=== PATIENT | male | born 1960 | race Caucasian/White ===

== ENCOUNTER 2023-07-07 10:12 | Outpatient (CLI) | payer OTHER, SELFPAY | END 2023-07-07 10:13 | disposition home or self-care (01) | PROVIDERS: PCP Family Medicine; Visit Provider Family Medicine | DX: Z00.00 Encounter for general adult medical examination without abnormal findings (principal); R53.83 Other fatigue; I10 Essential (primary) hypertension; Z12.5 Encounter for screening for malignant neoplasm of prostate; Z13.6 Encounter for screening for cardiovascular disorders | CPT/HCPCS: 80048; 80061; 84403; 84443; G0103 ==

== ENCOUNTER 2023-07-18 15:22 | Outpatient (CLI) | payer OTHER, SELFPAY ==
--- NOTE | 2023-07-18 16:00 | CRLHL7_ITS ---
For Patients: As a result of the Century Cures Act, medical imaging exams and procedure reports are released immediately into your electronic medical record. You may view this report before your referring provider. If you have questions, please contact your health care provider. INDICATION: Right lower quadrant pain, evaluate for hernia TECHNIQUE: CT abdomen and pelvis acquired in Valsalva with 100 cc Isovue 370 IV contrast. COMPARISON: None. FINDINGS: Lower chest: Unremarkable. Liver: Superior most portion of the dome was not included in the images. Visualized liver is unremarkable. Normal in size and attenuation. No masses. Gallbladder and bile ducts: Unremarkable. No stones or inflammation. No biliary dilatation. Pancreas: Unremarkable. No mass or inflammation. Spleen: Unremarkable. Normal in size. No masses. Adrenal glands: Unremarkable. No nodules. Kidneys: Unremarkable. No masses, stones, or hydronephrosis. GI tract: Colonic diverticulosis. No diverticulitis. Normal in caliber. No sign of mass or inflammation. Normal appendix. Vasculature: Unremarkable. Mesenteric arteries are patent. Lymph nodes: No lymphadenopathy. Omentum/Peritoneum/Abdominal Wall: No evidence for inguinal hernia. Pelvis: Unremarkable. Bones: Unremarkable for age. IMPRESSION: No cause for right lower quadrant pain identified. No inguinal hernia appreciated. Please note that all CT scans at this facility use dose modulation, iterative reconstruction, and/or weight-based dosing when appropriate to reduce radiation dose to as low as reasonably achievable. Dictated by Macho Plummer MD @ 07/19/2023 8:13:19 AM (Electronically Signed)
== END 2023-07-18 15:23 | disposition home or self-care (01) ==
LOC: CT 15:23
PROVIDERS: PCP Family Medicine; Visit Provider Surgery
DX: R10.31 Right lower quadrant pain (principal)
CPT/HCPCS: 74177; Q9967

== ENCOUNTER 2023-08-15 07:58 | Outpatient (CLI) | payer OTHER, SELFPAY ==
--- OUTSIDE RECORDS SUMMARY | 2023-08-15 08:00 | XMS_ITS | Clinical Summary ---
Author Name Unknown Organization [place] Address [address] [place] [address] Care Team Providers Care President & Founder Name Role Phone Clinic, [facility] Wang Primary Care Provider [phone] Allergies No known active allergies Medications Medication Sig Dispensed Refills Start Date End Date Status IBUPROFEN PO Take 200 mg by mouth 4 times daily 0 Active acetaminophen-codeine (TYLENOL #3) 300-30 MG per tablet Take 1-2 tablets by mouth every 4 hours as needed for moderate pain 0 Active multivitamin, therapeutic with minerals (MULTI-VITAMIN) TABS tablet Take 1 tablet by mouth daily 0 Active oxyCODONE IR (ROXICODONE) 5 MG tabletIndications:S/P discectomy 1-2 tablets every 3 hours as needed 20 tablet 0 08/14/2017 Active Immunizations Name Administration Dates Next Due TDAP (Adacel,Boostrix) 07/16/2007 Twinrix A/B 07/27/2011,08/27/2007,07/16/2007 Typhoid IM 07/27/2011 Social History Tobacco Use Types Packs/Day Years Used Date Smoking Tobacco: Never Smokeless Tobacco: Never Alcohol Use Standard Drinks/Week Comments Yes 0 (1 standard drink = 0.6 oz pur e alcohol) Sex and Gender Information Value Date Recorded Sex Assigned at Not on file Gender Identity Not on file Sexual Orientation Not on file Last Filed Vital Signs Vital Sign Reading Time Taken Comments Blood Pressure 134/92 08/14/2017 3:42 PM ATTENDING PATHOLOGIST Pulse 72 07/26/2017 9:45 AM ATTENDING PATHOLOGIST Temperature 36.4 ??C (97.6 ??F) 08/14/2017 3:00 PM CS T Respiratory Rate 16 08/14/2017 3:42 PM ATTENDING PATHOLOGIST Oxygen Saturation 99% 08/14/2017 3:42 PM ATTENDING PATHOLOGIST Inhaled Oxygen Concentration - - Weight 94.3 kg (207 lb 14.4 oz) 018 10:19 AM ATTENDING PATHOLOGIST Height 179.1 cm (5' 10.5) 08/14/2017 1 0:19 AM ATTENDING PATHOLOGIST Body Mass Index 29.41 08/14/2017 10:19 AM ATTENDING PATHOLOGIST Plan of Treatment Not on file Care Teams President & Founder Relationship Specialty Start Date End Date [facility], Carmen Wnag [address] [place], [place] [address] [address] PCP - General 06/16/13
--- OUTSIDE RECORDS SUMMARY | 2023-08-15 08:00 | XMS_ITS | Clinical Summary ---
Author Name Unknown Organization [facility] Address [address] [place] [address] Care Team Providers Care Healthcare Network Pricing Consultant Name Role Phone No Primary/Referring, Phy Primary Care Provider Unavailable Source Comments You are receiving this document as you are listed as the primary care provider,follow-up provider, or the patient has been referred to you for consultation.This is in compliance with the Medicare andSelect [facility] EHR Incentive Program,which states Providers who transition their patient to another setting of careor provider of care or refers their patient to another provider of care shouldprovide summary care record for each transition of care or referral. [facility] Allergies No known active allergies Medications Medication Sig Dispensed Refills Start Date End Date Status acetaminophen-codeine (TYLENOL NO. . 3) 300-30 MG tablet TK 1 T PO Q 4 TO 6 H PRN P 0 08/03/2017 Active Active Problems Problem Noted Date Diagnosed Date Pes cavus 04/11/2017 Plantar fasciitis 03/23/2017 Palpable abdominal mass 03/23/2017 Immunizations Name Administration Dates Next Due HepA-HepB ([place], 18+ yrs) 08/27/2007,07/16/19 08 TDAP (ADACEL) 07/16/2007 Td 11/29/1997 Typhoid (Vivotif, Oral) 07/16/2007 Social History Tobacco Use Types Packs/Day Years Used Date Smoking Tobacco: Never Smokeless Tobacco: Never Alcohol Use Standard Drinks/Week Comments Yes 0 (1 standard drink = 0.6 oz pur e alcohol) occasional beer Sex and Gender Information Value Date Recorded Sex Assigned at Not on file Gender Identity Not on file Sexual Orientation Not on file Last Filed Vital Signs Vital Sign Reading Time Taken Comments Blood Pressure 140/79 08/08/2017 3:19 PM METAL CEILING HANGER Pulse 73 08/08/2017 3:19 PM METAL CEILING HANGER Temperature 36.2 ??C (97.1 ??F) 08/08/2017 3:19 PM CS T Respiratory Rate - - Oxygen Saturation - - Inhaled Oxygen Concentration - - Weight 96.3 kg (212 lb 3.2 oz) 08/08/2017 3:19 P M METAL CEILING HANGER Height 179.1 cm (5' 10.5) 08/08/2017 3:19 PM CS T Body Mass Index 30.02 08/08/2017 3:19 PM METAL CEILING HANGER Plan of Treatment Health Maintenance Due Date Last Done Comments Colon Cancer Screening Plan Due 1960 Hep C Screening (Preventive Services) 1960 PSA Screening Discussion 1960 COVID-19 Vaccine (#1) 04/04/1963 HIV Screening (Preventive Services) 1978 Adult Preventive Visit 1980 Cholesterol 1997 HepB (3) 01/25/2008 08/27/2007, 07/16/2007 Zoster/Shingles (1 of 2) 2012 DTaP/Tdap/Td (2 - Tdap) 07/16/2017 07/16/19 08, 11/29/1997 Influenza (#1) 2023 HepA Completed 07/27/2011, 08/27/2007, 07/16/2007 Hib Aged Out No longer eligi ble based on patient's age to complete this topic IPV (Polio) Aged Out No longer eligi ble based on patient's age to complete this topic MCV4 Aged Out No longer eligi ble based on patient's age to complete this topic Pneumococcal Aged Out No longer eligi ble based on patient's age to complete this topic Care Teams Healthcare Network Pricing Consultant Relationship Specialty Start Date End Date No Primary/Referring, Carlie PCP - General 03/23/17
--- OUTSIDE RECORDS SUMMARY | 2023-08-15 08:00 | XMS_ITS | Referral Summary ---
Author Name Unknown Organization [place] Address [address] [place] [address] Care Team Providers Care Display Maker Name Role Phone Clinic, [facility] Primary Care Provider [phone] [phone] Allergies No known active allergies Medications Medication [...] Comments Blood Pressure 134/92 08/14/2017 3:42 PM SEASONAL GREENERY BUNDLER Pulse 72 07/26/2017 9:45 AM SEASONAL GREENERY BUNDLER Temperature 36.4 ??C (97.6 ??F) 08/14/2017 3:00 PM CS T Respiratory Rate 16 08/14/2017 3:42 PM SEASONAL GREENERY BUNDLER Oxygen Saturation 99% 08/14/2017 3:42 PM SEASONAL GREENERY BUNDLER Inhaled Oxygen Concentration - - Weight 94.3 kg (207 lb 14.4 oz) 018 10:19 AM SEASONAL GREENERY BUNDLER Height 179.1 cm (5' 10.5) 08/14/2017 1 0:19 AM SEASONAL GREENERY BUNDLER Body Mass Index 29.41 08/14/2017 10:19 AM SEASONAL GREENERY BUNDLER Plan of Treatment Not on file Care Teams Display Maker Relationship Specialty Start Date End Date [facility], Carmen Wang [address] [place], [place] [address] [address] PCP - General 06/16/13
--- NOTE | 2023-08-15 08:15 | MR_ITS ---
[address] [address] Phone:?[phone] Fax:?[phone] Referring Physician Information: Armando Lee M.D. [address] [id number] Phone:?[phone] Fax:?[phone] Patient:?Kenji Porter D.O.B:?1960 Sex:?Male Phone:?[phone] [facility] MRN:?[id number] Exam Date:?08/15/2023 EXAM: MRI of the RIGHT HIP, without contrast CLINICAL: Male, 62 years old, with chronic right lower quadrant/groin pain. INDICATION: Evaluate for derangement etiology. PRIOR SURGERY: None reported. PLAIN FILMS: None available. COMPARISONS: No prior MRIs available. TECHNICAL: Using a 1.5T MR scanner: 5.0 mm?coronals: PD, T2 3.0 mm?sagittals: PD, T2 3.0 mm oblique?axials: PD 3.0 mm?axials: PDFS 5.0 mm?coronals: T1, STIR of pelvis including hips SEDATION: None. CONTRAST: None. IMPRESSION: 1. Broad-based marked degeneration, right 30/tear and attenuation of most of the right acetabular labrum. 2. Prominent and broad-based superior through anteroinferior femoral cam morphology with potential to predispose to any clinical presentation of femoroacetabular impingement (MAYRA). 3. Relatively low volume hip into the range of borderline hip dysplasia, without acetabular retroversion. 4. Apparent chronic-appearing ligamentum teres deficiency. 5. No bone stress injuries. 6. No myotendinous abnormalities. 7. Included L4-5 and L5-S1 levels of the lower lumbar spine show elements of spondylosis at L5-S1 greater than L4-5. 8. Numerous sigmoid: diverticula without convincing MR evidence of adjacent soft tissue reactive changes.. FINDINGS: Hip joint: Effusion: Very small right hip joint effusion, smaller than that on the left. Ganglion/paralabral cyst: None. Articular cartilage: A small amount of chondromalacia is not excluded, perhaps suspected, but without convincing more prominent full-thickness chondromalacia/defect or subjacent reactive marrow edema. Loose bodies: None. Labrum: Broad-based deformity of the anterosuperior into anterior and superior labrum reflects prominent degeneration with broad-based tear/irregularity attenuation which likely also extends into the posterosuperior labrum as well (oblique axial series 6, images 21-11; sagittal series 8, images 26-19; coronal PD series 4, images 11-20). Proximal femur: No femoral occult fracture, bone stress injury, marrow edema or osteonecrosis. Slight circumferential collar marginal osteophyte formation of the right femoral head could support questioned slight right hip joint degenerative change. Decreased sulcus and decreased femoral head-neck offset of the anterosuperior into anteroinferior femoral head-neck junction reflects prominent and broad- based femoral cam morphology with potential to predispose cam mechanism of any clinically evident femoroacetabular impingement (MAYRA) (oblique axial series 6, images 12-18). Based on oblique axial series 6, image 13 at approximately 2 o'clock anterosuperiorly, the maximum femoral alpha angle measures markedly elevated at approximately 85?. Acetabulum: There appears deformity of the lateral acetabular rim appearing associated with chronic hyperostosis. Version: No acetabular retroversion. Coverage: Right lateral center edge (CE) angle measures relatively low into the range of borderline hip dysplasia (<20?) at approximately 23? (normal 25?-39?), midline coronal series 4, image 14. Ligamentum teres: Not well identified, suspected be markedly attenuated, perhaps representing residua of old injury and atrophy. Pelvis osseous structures: Sacrum: No stress/insufficiency fractures or marrow edema/pathology. Sacroiliac joints: No demonstrable sacroiliitis. Pubic rami: No stress/insufficiency fractures or marrow edema/pathology. Symphysis pubis: Mild chronic pubic symphysis degeneration without subjacent reactive marrow edema. AIIS: Superoinferior extent: 3.5 mm superior to the level of the acetabular roof. Anterior extent: 10 mm anterior to the anterior mid-acetabular rim. Myotendinous structures: Gluteus abductors: No convincing insertional tendinopathy or tear of gluteus minimus or medius. Adductors: No demonstrable tendinopathy or strain/tear. Rectus abdominis: No demonstrable tear/strain. Pre-pubic aponeurotic complex: Intact, without evidence of common rectus abdominis-adductor longus aponeurosis or pubic plate lesion. Hamstrings: Intact semimembranosus, semitendinosus and biceps femoris tendons, without convincing significant tendinopathy or tear. Flexors: Intact iliopsoas and rectus femoris, without strain/tear. External rotators: Intact, without demonstrable ischiofemoral impingement. Gluteal aponeurotic fascia and IT band: Unremarkable. Bursae: No demonstrable trochanteric, iliopsoas, or iliopectineal bursitis. Intrapelvic contents: Free fluid: No free fluid seen within the pelvis. Pelvic viscera: No discrete intrapelvic mass is identified. Lymph nodes: No pathologically enlarged lymphadenopathy. Neurovascular structures: No discrete cyst, mass or other compression upon the portions visualized of sciatic or femoral nerves. Lower lumbar spine: The visualized portion of the lower lumbar spine seen on the large [id number] coronal images shows multicystic level spondylosis at L5-S1 greater than L4-5 levels including localized mild reactive Modic type 1 endplate changes adjacent to the left anterolateral L5-S1 intervertebral disc (large [id number] coronal images 23-18). Pelvic soft tissues: Numerous diverticula of the sigmoid colon without convincing adjacent soft tissue reactive change. [facility] Electronically signed on 08/16/2023 10:00:00 AM by Grabiel Hamilton M.D.
== END 2023-08-15 07:59 | disposition home or self-care (01) ==
LOC: MRI 07:58
PROVIDERS: PCP Family Medicine; Visit Provider Orthopaedic Surgery Sports Medicine
DX: R10.31 Right lower quadrant pain (principal); S73.191A Other sprain of right hip, initial encounter; M47.897 Other spondylosis, lumbosacral region
CPT/HCPCS: 73721

== ENCOUNTER 2023-10-05 12:34 | Outpatient (CLI) | payer OTHER, SELFPAY | END 2023-10-05 12:35 | disposition home or self-care (01) | LOC: LKVREF 12:37 | PROVIDERS: PCP Family Medicine; Visit Provider Nurse Practitioner Family | DX: Z01.818 Encounter for other preprocedural examination (principal) | CPT/HCPCS: 80048 ==

== ENCOUNTER 2024-06-10 08:30 | Outpatient (CLI) | payer OTHER, SELFPAY ==
--- OUTSIDE RECORDS SUMMARY | 2024-06-10 08:32 | XMS_ITS | Clinical Summary ---
Author Organization [facility] Address [place], [place] [address] Care Team Providers Care Car Whacker Name Role Phone Clinic, No Pcp Or Primary Care Provider Unavaila ble Social History Tobacco Use Types Packs/Day Years Used Date Smoking Tobacco: Never Assessed Sex and Gender Information Value Date Recorded Sex Assigned at Not on file Legal Sex Male 6:40 AM APPLIED EXERCISE PHYSIOLOGIST Gender Identity Not on file Sexual Orientation Not on file Plan of Treatment Not on file Care Teams Car Whacker Relationship Specialty Start Date End Date Clinic, No Pcp Or . PCP - General 10/31/23
--- OUTSIDE RECORDS SUMMARY | 2024-06-10 08:33 | XMS_ITS | Clinical Summary ---
Author Organization [facility] Address [address] [place] [address] Care Team Providers Care Proof Technician Name Role Phone No Primary/Referring, Phy Primary Care Provider Unavailable Source Comments You are receiving this document as you are listed as the primary care provider,follow-up provider, or the patient has been referred to you for consultation.This is in compliance with the Medicare and[facility] Cent[facility] EHR Incentive Program,which states Providers who transition their patient to another setting of careor provider of care or refers their patient to another provider of care shouldprovide summary care record for each transition of care or referral. [facility] Allergies No known active allergies Medications Medication [...] Comments Blood Pressure 140/79 08/08/2017 3:19 PM TRAFFIC CONTROLLER CABLE Pulse 73 08/08/2017 3:19 PM TRAFFIC CONTROLLER CABLE Temperature 36.2 C (97.1 F) 08/08/2017 3:19 PM TRAFFIC CONTROLLER CABLE Respiratory Rate - - Oxygen Saturation - - Inhaled Oxygen Concentration - - Weight 96.3 kg (212 lb 3.2 oz) 08/08/2017 3:19 P M TRAFFIC CONTROLLER CABLE Height 179.1 cm (5' 10.5) 08/08/2017 3:19 PM CS T Body Mass Index 30.02 08/08/2017 3:19 PM TRAFFIC CONTROLLER CABLE Plan of Treatment Health Maintenance Due Date Last Done Comments Colon Cancer Screening Plan Due 1960 Hep C Screening (Preventive Services) 1960 PSA Screening Discussion 1960 HIV Screening (Preventive Services) 1978 Adult Preventive Visit 1980 Cholesterol 1997 HepB (3) 01/25/2008 08/27/2007, 07/16/2007 Zoster/Shingles (1 of 2) 2012 DTaP/Tdap/Td (2 - Tdap) 07/16/2017 07/16/19 08, 11/29/1997 COVID-19 Vaccine ( - 2023-2 5 season) 2024 Influenza (#1) 2024 RSV (1 - 1-dose 75+ series) 2037 HepA Completed 07/27/2011, 08/27/2007, 07/16/2007 Hib Aged [...] age to complete this topic Care Teams Proof Technician Relationship Specialty Start Date End Date No Primary/Referring, Carlie PCP - General 03/23/17
--- OUTSIDE RECORDS SUMMARY | 2024-06-10 08:33 | XMS_ITS | Referral Summary ---
Author Organization [place] Address [address] [facility] [place] [address] Care Team Providers Care Regulatory Affairs Director Name Role Phone Clinic, [facility] Wang Primary Care Provider [phone] Allergies No known active allergies Medications IBUPROFEN PO Take 200 mg by mouth 4 times daily Active acetaminophen-co deine (TYLENOL #3) 300-30 MG per tablet Take 1-2 tablets by mouth every 4 hours as needed for moderate pain Active multivitamin, therapeutic with minerals (MULTI-VITAMIN) TABS tablet Take 1 tablet by mouth daily Active oxyCODONE IR (ROXICODONE) 5 MG tabletIndication s:S/P discectomy 1-2 tablets every 3 hours as needed 20 tablet 8 Active Immunizations Name Administration Dates Next Due TDAP (Adacel,Boostrix) 07/16/2007 Twinrix A/B 07/27/2011,08/27/2007,07/16/2007 Typhoid IM 07/27/2011 Social History Tobacco Use Types Packs/Day Years Used Date Smoking Tobacco: Never Smokeless Tobacco: Never Alcohol Use Standard Drinks/Week Comments Yes 0 (1 standard drink = 0.6 oz pur e alcohol) Sex and Gender Information Value Date Recorded Sex Assigned at Not on file Legal Sex Male 3:12 AM REVENUE STAMP CUTTER Gender Identity Not on file Sexual Orientation Not on file Last Filed Vital Signs Vital Sign Reading Time Taken Comments Blood Pressure 134/92 08/14/2017 3:42 PM REVENUE STAMP CUTTER Pulse 72 07/26/2017 9:45 AM REVENUE STAMP CUTTER Temperature 36.4 C (97.6 F) 08/14/2017 3:00 PM REVENUE STAMP CUTTER Respiratory Rate 16 08/14/2017 3:42 PM REVENUE STAMP CUTTER Oxygen Saturation 99% 08/14/2017 3:42 PM REVENUE STAMP CUTTER Inhaled Oxygen Concentration - - Weight 94.3 kg (207 lb 14.4 oz) 018 10:19 AM REVENUE STAMP CUTTER Height 179.1 cm (5' 10.5) 08/14/2017 1 0:19 AM REVENUE STAMP CUTTER Body Mass Index 29.41 08/14/2017 10:19 AM REVENUE STAMP CUTTER Plan of Treatment Not on file [facility] Care Teams Regulatory Affairs Director Relationship Specialty Start Date End Date [facility], Carmen Wang [address] [place], [place] [address] [address] PCP - General 06/16/13
--- OUTSIDE RECORDS SUMMARY | 2024-06-10 08:33 | XMS_ITS | Clinical Summary ---
Author Organization [place] Address [address] [place] [address] Care Team Providers Care Income Tax Analyst Name Role Phone Clinic, [facility]en Wang Primary Care Provider [phone] Allergies No known active allergies Medications IBUPROFEN [...] on file Legal Sex Male 3:[address] HIG[address] DRILL OPERATOR Gender Identity Not on file Sexual Orientation Not on file Last Filed Vital Signs Vital Sign Reading Time Taken Comments Blood Pressure 134/92 08/14/2017 3:[address] DRILL OPERATOR Pulse 72 07/26/2017 9:[address] DRILL OPERATOR Temperature 36.4 C (97.6 F) 08/14/2017 3:[address] DRILL OPERATOR Respiratory Rate 16 08/14/2017 3:[address] DRILL OPERATOR Oxygen Saturation 99% 08/14/2017 3:[address] H[address] DRILL OPERATOR Inhaled Oxygen Concentration - - Weight 94.3 kg (207 lb 14.4 oz) 018 10:[address] DRILL OPERATOR Height 179.1 cm (5' 10.5) 08/14/2017 1 0:[address] DRILL OPERATOR Body Mass Index 29.41 08/14/2017 10:[address] H[address] DRILL OPERATOR Plan of Treatment Not on file Insurance [facility] Care Teams Income Tax Analyst Relationship Specialty Start Date End Date [facility], Carmen Wang [address] [place], [place] [address] [address] PCP - General 06/16/13
--- NOTE | 2024-06-10 09:47 | W.ANESCHARGE ---
Anesthesia Charges Start Date/Time Anesthesia Start Date: 06/10/24 Anesthesia Start Time: 09:20 Stop Date/Time Anesthesia Stop Date: 06/10/24 Anesthesia Stop Time: 09:44
--- NOTE | 2024-06-10 10:07 | W.ANESCHARGE ---
Anesthesia Charges Start Date/Time Anesthesia Start Date: 06/10/24 Anesthesia Start Time: 09:20 Stop Date/Time Anesthesia Stop Date: 06/10/24 Anesthesia Stop Time: 09:44
== END 2024-06-10 08:31 | disposition home or self-care (01) ==
LOC: OP CLINIC 08:31
PROVIDERS: PCP Family Medicine; Visit Provider Surgery
DX: Z12.11 Encounter for screening for malignant neoplasm of colon (principal); D12.8 Benign neoplasm of rectum; K57.30 Diverticulosis of large intestine without perforation or abscess without bleeding
CPT/HCPCS: 00811; 45385; 88305; J2704

== ENCOUNTER 2024-07-02 09:22 | Outpatient (CLI) | payer OTHER, SELFPAY ==
--- NOTE | 2024-07-02 10:56 | W.ANESCHARGE ---
Anesthesia Charges Start Date/Time Anesthesia Start Date: 07/02/24 Anesthesia Start Time: 10:33 Stop Date/Time Anesthesia Stop Date: 07/02/24 Anesthesia Stop Time: 10:53
== END 2024-07-02 09:23 | disposition home or self-care (01) ==
LOC: OP CLINIC 09:23
PROVIDERS: PCP Family Medicine; Visit Provider Surgery
DX: R13.10 Dysphagia, unspecified (principal); K21.9 Gastro-esophageal reflux disease without esophagitis; K44.9 Diaphragmatic hernia without obstruction or gangrene; K31.89 Other diseases of stomach and duodenum
CPT/HCPCS: 00731; 43239; 88305; J2704; J3490

== ENCOUNTER 2024-07-30 15:22 | Outpatient (CLI) | payer OTHER, SELFPAY | END 2024-07-30 15:23 | disposition home or self-care (01) | LOC: LKVREF 15:22 | PROVIDERS: PCP Family Medicine; Visit Provider Otolaryngology | DX: R13.10 Dysphagia, unspecified (principal) | CPT/HCPCS: 84443 ==

== ENCOUNTER 2024-08-15 07:46 | Outpatient (CLI) | payer OTHER, SELFPAY ==
[2024-08-15 08:15] LABS: Creatinine* 0.9 mg/dL (0.5-1.5); Estimated Glomerular Filt Rate 97 ml/min
== END 2024-08-15 07:47 | disposition home or self-care (01) ==
LOC: CT 07:48
PROVIDERS: PCP Family Medicine; Visit Provider Otolaryngology
DX: R13.10 Dysphagia, unspecified (principal); J35.9 Chronic disease of tonsils and adenoids, unspecified; M54.2 Cervicalgia
CPT/HCPCS: 36415; 70491; 74221; 82565; Q9967

== ENCOUNTER 2024-08-29 15:23 | Outpatient (CLI) | payer OTHER, SELFPAY | END 2024-08-29 15:24 | disposition home or self-care (01) | LOC: CT 15:23 | PROVIDERS: PCP Family Medicine; Visit Provider Otolaryngology | DX: J36 Peritonsillar abscess (principal) | CPT/HCPCS: 70491; Q9967 ==

== ENCOUNTER 2024-09-05 07:58 | Outpatient (CLI) | payer OTHER, SELFPAY | END 2024-09-05 07:59 | disposition home or self-care (01) | LOC: MRI 07:59 | PROVIDERS: PCP Family Medicine; Visit Provider Otolaryngology | DX: R13.10 Dysphagia, unspecified (principal); I67.82 Cerebral ischemia; J36 Peritonsillar abscess | CPT/HCPCS: 70553; A9575 ==

== ENCOUNTER 2024-09-23 14:43 | Outpatient (RCR) | payer OTHER, SELFPAY ==
--- NOTE | 2024-09-23 16:51 | SLP.EVAL ---
Orders faxed for Modified Barium Swallow Study to further assess pharyngeal phase of the swallow and r/o aspiration. TALENT MANAGER Eval TALENT MANAGER Eval Start: 09/23/24 16:15 Freq: Status: Active Protocol: Document 09/23/24 16:15 RANCHO (Rec: 09/23/24 16:42 RANCHO [id number]) E-signed By Nate Zeng, TALENT MANAGER TALENT MANAGER System Review History & Reason For Referral Type of Speech Evaluation Dysphagia Evaluation Rehabilitation Order Evaluation and Treat Date of Order 08/22/24 Reason for Referral dysphagia, aspiration into airway Onset Date Of Patient's Problem 07/22/24 Medical Diagnosis R13.10 Dysphagia, unspecified T17.908A Unspecified foreign body in respiratory tract, part unspecified causing other injury Treatment Diagnosis dysphagia Pertinent Medical History Per ENT provider note on , The patient is a 63-year- old male who presents with chief complaint of excessive mucus and tender anterior neck . He was recently started on omeprazole for reflux. He complains of a globus sensation with swallowing at the cricoid region. He also has observed sleep apnea, bruxism, snoring, [place] score of 12.5. No weight loss or odynophagia. He has always been tender to touch at the just beneath the [place]. Patient went to urgent care on 07/22/24 and was found to be positive for RSV. He followed up with ENT on 07/30/24 as noted above. He underwent a neck CT and was found to have a right tonsillar palatal abscess. He had a round of antibiotic and had a repeat CT which showed the abscess had reduced in size. Patient reports much less gagging after his round of antibiotics . A brain MRI was completed on 09/05/24 to rule out MS, per patient report. He also had an EGD in 2023 that was negative . He had an esophagram completed recently and the radiologist noted laryngeal penetration to the level of the vocal cords and his ENT referred him to speech therapy for further assessment of swallowing. Medications Omeprazole 40mg once per day Pain Pain Intensity 0 Hearing Information Hearing Status WNL Vision Information Vision Status WNL Patient Orientation Orientation & Mental Status A&Ox4 TALENT MANAGER Initial Assessment/POC Subjective Information Subjective/Pain Comment Patient reports that around the middle of 2023 he noticed he was queasy and feeling sick in the morning. He was diagnosed with GERD around that time. A few months later he noted increased throat clearing and later gagging and tenderness on his anterior neck, below the [place]. He states that he coughs up phlegm and foamy spit every morning. Assessment & Impression Assessment/Impression ASSESSMENT Oral mech/cranial nerve exam completed. All WNL except slight reduction in lingual strength on the left. Trials of thin, puree and solids were administered. Thin: Patient was given 8 ounces of water via cup. Oral phase-Adequate acceptance and oral containment with good bolus control. Pharyngeal phase-Timely swallow response with no overt s/sx of penetration or aspiration. Puree: Patient was given 4 ounces of applesauce. Oral phase-Adequate acceptance and oral containment with no oral residue. Pharyngeal phase- Timely swallow response with no overt s/sx of penetration or aspiration. No c/o food sticking. Solid: Patient was given one jose de jesus cracker. Oral phase- Adequate acceptance and oral containment with no oral residue. Pharyngeal phase- Timely swallow with no overt s /sx of penetration or aspiration. No c/o food sticking. EAT-10 completed with a score of 1 (3 or higher indicates dysphagia). IMPRESSIONS A clinical swallow evaluation was completed per provider orders. Patient presents with a functional oropharyngeal swallow. Oral mech/cranial nerve exam WNL except for slight reduction in lingual strength on the left. Oral and pharyngeal phase of the swallow appears intact. He tolerated thin, puree and solid consistencies with no overt s/sx of aspiration. Recommend Kenji continues with a Regular diet with thin liquids. Safe swallow and reflux strategies include upright for all po and remain upright for one hour after meals, eat last meal three hours before bedtime, and elevate head of bed 4-6 inches . Patient was noted to have penetration to the level of the vocal cords and coughing during a recent esophagram and therefore, a modified barium swallow study is recommended to further assess the pharyngeal phase of the swallow and rule out aspiration. Patient is in agreement with this plan. Requested orders for MBSS. Functional Limitations & Outcome/Goals Goals/Functional Outcomes Complete outpatient modified barium swallow study. Further goals to follow after that procedure is completed. Intervention Plan & Frequency Intervention Plan To be determined after MBSS is completed. Therapist Signature & License # I Certify That Therapy Services Provided, Therapy Plan Established, Therapy Plan Reviewed Therapist Signature & License Number Nate Zeng MS [facility]-TALENT MANAGER # [id number] Certification Date Date of First Visit for Therapy 09/23/24 Clinic Certification # #[id number] Recertification Due Date 11/22/24 Physician Signature Signature of Physician Indicates Treatment Plan,Certification Plan,Medically Needed Services Physician Signature & Date Required Please Sign/Date Here Speech/Language Pathology Billing Units Billing Units Eval Swallow Function 1
--- NOTE | 2024-10-11 12:27 | SLP.MBS ---
STONE LAYOUT MARKER Modified Barium Swallow STONE LAYOUT MARKER Modified Barium Swallow Eval Start: 10/11/24 11:45 Text: Status: Active Freq: Protocol: Document 10/11/24 11:45 RANCHO (Rec: 10/11/24 12:10 RANCHO [id number]) E-signed By Nate Zeng, STONE LAYOUT MARKER Modified Barium Swallow Evaluation Evaluation Reason for Referral Swallowing difficulty, frequent throat clearing and gagging. Medical Diagnosis Dysphagia, unspecified R13.10 Treatment Diagnosis Dysphagia Date of Order 10/03/24 Type of Referral Evaluation Onset of Patient's Problem About 2 years Pertinent Medical History GERD Medications 40mg Omeprazole for GERD. Hearing Status WNL Vision Status WNL Subjective/Pain Comment Patient had a recent esophagram and noted laryngeal penetration and subsequent coughing during procedure. He was then seen for outpatient clinical swallow evaluation and a MBS was ordered to further assess the pharyngeal phase of the swallow. Kenji states that his gagging is much improved and only happens occasionally now. His throat clearing persists but he did note that when he was in [place], he was no longer coughing or clearing his throat. Assessment/Impressions ASSESSMENT Oral [facility] exam: WNL Trials of thin, puree and solid were administered under fluoroscopy in lateral views. Thin: order of presentation 1 spoon, 2 cup, 3 consecutive swallows by straw. Oral phase: Good bolus control with normal A/P movement. No oral residue. Pharyngeal phase: Swallow triggered at the ramus of the mandible. Good hyolaryngeal elevation with full epiglottic closure. Minimal flash penetration during consecutive swallows that cleared. No significant pharyngeal residue. Puree: order of presentation 4 . Oral phase: Good bolus control with normal A/P movement. No oral residue. Pharyngeal phase: Swallow triggered at the valleculae. Good hyolaryngeal elevation with full epiglottic closure. No penetration or aspiration. Minimal pharyngeal residue in the valleculae. Solid: order of presentation. Oral phase: Good bolus control with normal A/P movement. Minimal coating along the base of tongue. Pharyngeal phase: Swallow triggered at the valleculae. Good hyolaryngeal elevation with full epiglottic closure. No penetration or aspiration. No pharyngeal residue. IMPRESSION Kenji is a 64-year-old male with complaints of coughing, frequent throat clearing and gagging. He was seen at outpatient clinic for a clinical swallow evaluation and a MBS was recommended to further assess the pharyngeal phase of the swallow. A video swallow study was completed per provider orders. Under fluoroscopy in lateral view, patient presents with a normal oropharyngeal swallow. Oral phase intact with very minimal coating along the base of tongue with solids. Pharyngeal phase intact with minimal flash penetration during the swallow with thin liquids and none to minimal stasis in the valleculae and pyriform sinus. Recommend a Regular diet with thin liquids. Reflux precautions include stay upright for one hour after meals, smaller more frequent meals, eat last meal three hours before bedtime, elevate head of bed 4-6 inches. Goals/Functional Outcomes Patient will verbalize understanding of today's assessment results and recommendations. GOAL MET 10/11. Modified Barium Swallow Education Education Topics Teaching Recipient Patient Teaching Methods Verbal Response to Teaching Verbalize Understanding Therapist Signature/License Number Nate Zeng MS CCC-STONE LAYOUT MARKER # [id number] Speech/Language Pathology Billing Units Billing Units Eval Swallow Motion Fluoro 1
== END 2024-10-14 11:57 | disposition home or self-care (01) ==
PROVIDERS: PCP Family Medicine; Visit Provider Otolaryngology
DX: R13.10 Dysphagia, unspecified (principal); T17.908A Unspecified foreign body in respiratory tract, part unspecified causing other injury, initial encounter; Z51.89 Encounter for other specified aftercare
CPT/HCPCS: 92526; 92610; 92611

== ENCOUNTER 2024-10-11 10:52 | Outpatient (CLI) | payer OTHER, SELFPAY ==
--- NOTE | 2024-10-11 11:15 | CRLHL7_ITS ---
For Patients: As a result of the 21st Century Cures Act, medical imaging exams and procedure reports are released immediately into your electronic medical record. You may view this report before your referring provider. If you have questions, please contact your health care provider. INDICATION: Difficulty swallowing TECHNIQUE: Modified barium swallow. Fluoroscopic time 40 seconds. FINDINGS/IMPRESSION: Anatomical structures are normal. Swallowing mechanism appears within normal limits. No episodes of penetration or aspiration. No significant findings. Dictated by Greg Mendez MD @ 10/15/2024 3:33:03 PM (Electronically Signed)
== END 2024-10-11 10:53 | disposition home or self-care (01) ==
LOC: RAD 10:53
PROVIDERS: PCP Family Medicine; Visit Provider Otolaryngology
DX: R13.10 Dysphagia, unspecified (principal)
CPT/HCPCS: 74230

== ENCOUNTER 2024-10-16 07:59 | Outpatient (CLI) | payer OTHER, SELFPAY ==
--- NOTE | 2024-10-23 08:12 | W.PM.SLEEP ---
Sleep Study Details Details Interpreting Provider: Heena Date of Sleep Study: 10/16/24 Sleep Study Details: STUDY TYPE:? Home unattended BMI:? Not recorded ORDERING PROVIDER:? Heena INDICATION:? Concern for sleep apnea ? SLEEP SUMMARY:? 459 minutes monitored RESPIRATORY SUMMARY:? AHI 10.7 Low oxygen 89 0.1 minutes oxygen less than 90% Snoring 97.2% PERIODIC LIMB MOVEMENTS OF SLEEP:? Not recorded CARDIAC:? Range 42-105, mean 63.9 IMPRESSION:? Mild obstructive sleep apnea, bradycardia noted during study RECOMMENDATION: Further cardiac evaluation may be indicated for the bradycardia. For the obstructive sleep apnea treatment options include CPAP dental appliance and/or airway expansion surgery.
== END 2024-10-16 08:00 | disposition home or self-care (01) ==
LOC: SLEEP 08:00
PROVIDERS: PCP Family Medicine; Visit Provider Otolaryngology
DX: G47.33 Obstructive sleep apnea (adult) (pediatric) (principal)
CPT/HCPCS: 95806